=== PATIENT | female | born 1995 | race Caucasian/White ===

== ENCOUNTER 2023-04-30 07:47 | Emergency (ER) | payer OTHER, SELFPAY ==
[2023-04-30 07:53] VITALS: BP 130/75; PULSE 104; RESP 18; TEMP 36.7; O2SAT 100; BMI 16.8
--- NOTE | 2023-04-30 08:29 | ED.ALLEREA ---
HPI - Allergic Reaction General Chief complaint: Allergic Reaction Stated complaint: allergic reaction Time Seen by Provider: 04/30/23 08:10 History of Present Illness HPI narrative: Patient is a 27-year-old female has a history of allergies to Dr. Mullen. Subsequently patient attempted to cut a chocolate chip cookie that may have contained some dark chocolate did touch her face with did touch her body with it she developed a diffuse rash over her body including the arms and the legs and the torso. There has no mucosal membrane involvement. There has no shortness of breath. There is no change in voice. Patient is from home. No diaphoresis. No coughing or congestion or upper respiratory symptoms. Positive itch. Related Data Previous Rx's Medication Instructions Recorded diphenhydramine HCl 25 mg capsule 25 mg PO Q8H 5 days #15 caps 04/30/23 (Benadryl) epinephrine 0.3 mg/0.3 mL 0.3 mg (0.3 mL) IM ONCE PRN 04/30/23 injection, auto-injector (EpiPen) extreme reaction #1 ea famotidine 20 mg tablet (Pepcid) 20 mg PO BID 5 days #10 tabs 04/30/23 prednisone 20 mg tablet 40 mg (2 x 20 mg) PO DAILY #10 tabs 04/30/23 Allergies Allergy/AdvReac Type Severity Reaction Status Date / Time chocolate Allergy Hives Verified 04/30/23 07:57 Review of Systems Review of Systems: No fever no chills no systemic complaints Yes all other systems are reviewed and are negative FOR[facility]LY [facility] Past Medical History Attestation statement: The following information was validated with the patient. Social History Social History Advance Directives: No Physical Exam ED Vital Signs: Vital Signs - 24 hr 04/30/23 07:53 Temperature 98.0 F Pulse Rate 104 H Respiratory Rate 18 Blood Pressure 130/75 Pulse Oximetry 100 Oxygen Delivery Method Room Air BMI result Body Mass Index 16.8 Appearance: Alert. Oriented X3. No acute distress. Eyes: Pupils equal, round and reactive to light. ENT: Pharynx normal. Neck: Normal inspection. Neck supple. No lymph nodes noted. No crepitus CVS: Normal heart rate and rhythm. Pulses normal. Normal S1 and S2 Respiratory: No respiratory distress. Breath sounds normal. No Wheezing. No rales Abdomen: Soft and nontender. No rigidity. No distention. good BS x4 Skin: Skin warm and dry. Positive irregularly bordered red rash that blanches. Pleuritic. Over the legs over the back over the arms. No mucosal membrane involvement. Extremities: No lower extremity edema. Neurovascular intact to all extremities. No Lacerations. No Rash Neuro: Oriented X 3. No motor deficit. No sensory deficit. Moving all extermities. No slurred speech Medical Decision Making Medical Decision Making MDM Narrative: Patient's symptoms consistent with having allergic reaction there is no evidence for anaphylaxis patient's vital signs are stable there is no evidence for Alvarez-Tristen there is no sloughing of the rash there is no mucosal membrane involvement. She is well-appearing. Had history of something similar in the past. Will give steroids, Benadryl, Pepcid. EpiPen for emergency. Close follow-up with patient's primary physician for a allergy referral. Currently in stable condition. Differential Diagnosis Differential Diagnoses: The differential diagnosis associated with the presentation includes Anaphylaxis, allergic reaction, Alvarez-Tristen Admission/Observation Consideration of admission/observation: Escalation of care including admission/observation considered No need for admission as patient is well-appearing Independent Historian Clinical information obtained from an independent historian. History obtained from or confirmed by: Spouse Discharge Plan Discharge Clinical Impression: Allergic reaction, Urticaria Patient Disposition: Home, Self-Care Instructions: Urticaria (ED), General Allergic Reaction (ED), Allergy Testing (ED) Prescriptions: New famotidine [Pepcid] 20 mg tablet 20 mg PO BID 5 Days Qty: 10 0RF diphenhydramine HCl [Benadryl] 25 mg capsule 25 mg PO Q8H 5 Days Qty: 15 0RF prednisone 20 mg tablet 40 mg PO DAILY Qty: 10 0RF epinephrine [EpiPen] 0.3 mg/0.3 mL auto-injector 0.3 mg IM ONCE PRN (Reason: extreme reaction) Qty: 1 0RF Rx Instructions: for 2 doses Referrals: [facility] [Physician] - 05/03/23
[2023-04-30 08:52] VITALS: BP 130/79; PULSE 78; RESP 16; TEMP 36.4; O2SAT 96
== END 2023-04-30 08:52 | disposition home or self-care (01) ==
PROVIDERS: Emergency Provider Emergency Medicine Emergency Medical Services
DX: L50.0 Allergic urticaria (principal)
CPT/HCPCS: 99283; 99284